=== PATIENT | male | born 1985 | race Caucasian/White ===

== ENCOUNTER 2020-04-14 11:50 | Emergency (ER) | payer SELFPAY ==
[2020-04-14] MEDS ORDERED: NA CHLORIDE 0.9% 1,000 ML ONE (13:48)
[2020-04-14] MEDS ORDERED: ONDANSETRON 4 MG/2 ML VIAL ONE (13:48)
[2020-04-14] MEDS ORDERED: MEPERIDINE HCL 50 MG/ML ONE (13:48)
[2020-04-14 13:51] LABS: Basophils % 0.2 % (0-1.3); Hematocrit 47.7 % (39.6-49.0); Lymphocytes % 7.4 % (15.3-44.8); RBC Red Blood Cell Count 5.61 M/uL (4.33-5.43)
[2020-04-14 14:10] LABS: ALT/SGPT 33 U/L (12-78); AST/SGOT 20 U/L (15-37); Albumin 4.3 g/dL (3.4-5.0); Alkaline Phosphatase 89 U/L (45-117); BUN Blood Urea Nitrogen 9 mg/dL (7-18); Bicarbonate 30 mmol/L (21-32); Bilirubin Direct < 0.1 mg/dL (0-0.2); Bilirubin Total 0.4 mg/dL (0.2-1.0); Glucose Level 123 mg/dL (74-106); Lipase 104 U/L (73-393); Potassium 4.5 mmol/L (3.5-5.1); Protein, Total 8.4 g/dL (6.4-8.2); Sodium Level 141 mmol/L (136-145)
--- NOTE | 2020-04-14 14:28 | RAD REPORT ---
EXAM DESCRIPTION: CT - Abdomen Pelvis W Contrast - 04/14/2020 1:54 pm CLINICAL HISTORY: ABD PAIN COMPARISON: No comparisons TECHNIQUE: Biphasic, helical CT imaging of the abdomen and pelvis was performed following 100 ml non -ionic IV contrast. No oral contrast administered. All CT scans are performed using dose optimization technique as appropriate and may include automated exposure control or mA/KV adjustment according to patient size. FINDINGS: No suspicious findings in the lung bases. The liver, spleen, and pancreas show no suspicious findings. Gallbladder and biliary tree are also wi thout suspicious finding. Mild right-sided hydronephrosis is present secondary to a 6 mm obstructing calculus in the distal rig ht ureter at the pelvic inlet. When viewed from a KUB projection the obstructing stone is superimpose d on the inferior margin of the right sacral ala. A 3 millimeter calcification is present in the mid calyx right kidney. A 3 millimeter lower pole calyx calcification noted on the left. No left-sided hy dronephrosis. Renal function is delayed on the right. No pyelonephritis or acute parenchymal process. No bladder abnormalities. No adrenal abnormalities. No prostate gland abnormality. No dilated bowel loops or bowel wall thickening. Retrocecal appendix is normal. No active GI process seen. No free air, free fluid or inflammatory stranding. No mass or bulky lymphadenopathy. A very sm all fat only umbilical hernia is present. Fat filled left inguinal hernia is present. Left testicle i s in the left inguinal canal. This is probably due to patency of the inguinal canal rather than an un descended testicle. No suspicious bony findings. IMPRESSION: Mild right-sided hydronephrosis secondary to a 6 mm obstructing calculus at the pelvic i nlet level. When viewed from a KUB projection the obstructing calculus is superimposed on the inferior margin of the right sacral ala. As detailed above, no additional acute finding seen. The left testicle is in the left inguinal canal probably due to the hernia and patency the canal rather than a undescended testicle.
[2020-04-14] MEDS ORDERED: MAGNESIUM SULFATE 1 gm IVPB 1 GM/100 ML BAG IV ONE (15:43)
[2020-04-14] MEDS ORDERED: TAMSULOSIN 0.4 MG SR CAP ONE (15:43)
[2020-04-14] MEDS ORDERED: KETOROLAC 30 MG/ML INJ ONE (15:43)
--- NOTE | 2020-04-14 16:15 | EDPHYS ---
Physician Documentation [facility] Name: Lenny Ghotra Jr Age: 35 yrs Sex: Male : 1985 Arrival Date: 04/14/2020 Time: 11:52 Bed 7 Private MD: ED Physician Fredi Rouse HPI: 04/14 15:16 This 35 yrs old Male presents to ER via Ambulatory with complaints of rn Abdominal Pain. 15:16 The patient presents with abdominal pain right lower quadrant. Onset: The rn symptoms/episode began/occurred this morning. The symptoms do not radiate. Modifying factors: The symptoms are alleviated by nothing, the symptoms are aggravated by nothing. Severity of pain: At its worst the pain was moderate in the emergency department the pain has improved. The patient has not experienced similar symptoms in the past. The patient has not recently seen a physician. Historical: - Allergies: 12:11 No Known Allergies; ca1 - Home Meds: 12:11 Adderall XR Oral [Active]; ca1 - PMHx: 12:11 ADD/ADHD; ca1 - PSHx: 12:11 Knee surgery; ca1 - Immunization history:: Adult Immunizations up to date. - Social history:: Smoking status: Patient/guardian denies using tobacco, the patient reports quitting approximately 2 years ago. - Family history:: not pertinent. - Hospitalizations: : No recent hospitalization is reported. ROS: 15:16 Constitutional: Negative for fever, chills, and weight loss, Eyes: Negative for injury, rn pain, redness, and discharge, Cardiovascular: Negative for chest pain, palpitations, and edema, Respiratory: Negative for shortness of breath, cough, wheezing, and pleuritic chest pain, Abdomen/GI: + abd pain and nausea Back: Negative for injury and pain, : Negative for injury, bleeding, discharge, and swelling, MS/Extremity: Negative for injury and deformity, Skin: Negative for injury, rash, and discoloration, Neuro: Negative for headache, weakness, numbness, tingling, and seizure. Exam: 15:16 Constitutional: This is a well developed, well nourished patient who is awake, alert, rn and in no acute distress. Head/Face: Normocephalic, atraumatic. Cardiovascular: Regular rate and rhythm. No pulse deficits. Respiratory: No increased work of breathing, no retractions or nasal flaring. Abdomen/GI: soft, mild RLQ tenderness Skin: Warm, dry MS/ Extremity: Pulses equal, no cyanosis. Neuro: Awake and alert, GCS 15 Vital Signs: 12:08 BP 148 / 99; Pulse 51; Resp 16 S; Temp 97.8(TE); Pulse Ox 100% on R/A; Weight 117.93 kg ca1 (R); Height 6 ft. 2 in. (187.96 cm) (R); Pain 8/10; 15:00 BP 139 / 95; Pulse 65; Resp 18 S; Pulse Ox 99% on R/A; aa5 16:40 BP 138 / 90; Pulse 62; Resp 16 S; Temp 98.0(TE); Pulse Ox 99% on R/A; aa5 12:08 Body Mass Index 33.38 (117.93 kg, 187.96 cm) ca1 MDM: 13:08 Patient medically screened. rn 15:18 Differential diagnosis: appendicitis, Ureterolithiasis. Data reviewed: vital signs, rn nurses notes, lab test result(s), radiologic studies, CT scan. 16:13 Counseling: I had a detailed discussion with the patient and/or guardian regarding: the rn historical points, exam findings, and any diagnostic results supporting the discharge/admit diagnosis, lab results, radiology results, the need for outpatient follow up, to return to the emergency department if symptoms worsen or persist or if there are any questions or concerns that arise at home. Response to treatment: the patient's symptoms have markedly improved after treatment, and as a result, I will discharge patient. Special discussion: Based on the patient's Hx, exam, and Dx evaluation, there is no indication for emergent surgery or inpatient Tx. It is understood by the patient/guardian that if the Sx's persist or worsen they need to return immediately for re-evaluation. I discussed with the patient/guardian in detail that at this point there is no indication for admission to the hospital. It is understood, however, that if the symptoms persist or worsen the patient needs to return immediately for re-evaluation. ED course: Pain resolved, observed here, stone likely passed into bladder, will dc home with symptomatic treatment. . 04/14 13:16 Order name: Basic Metabolic Panel; Complete Time: 14:26 rn 04/14 13:16 Order name: CBC with Diff rn 04/14 13:16 Order name: Hepatic Function; Complete Time: 14:26 rn 04/14 13:16 Order name: Lipase; Complete Time: 14:26 rn 04/14 16:11 Order name: CREATININE WHOLE BLOOD EDMS 04/14 13:16 Order name: CT Abd/Pelvis - IV Contrast Only; Complete Time: 14:58 rn 04/14 16:27 Order name: Urine Dipstick--Ancillary (enter results) bd 04/14 13:16 Order name: IV Saline Lock; Complete Time: 13:42 rn 04/14 13:16 Order name: Labs collected and sent; Complete Time: 13:42 rn 04/14 13:16 Order name: Urine Dipstick-Ancillary (obtain specimen); Complete Time: 17:14 rn Administered Medications: 14:25 Drug: NS 0.9% 1000 ml Route: IV; Rate: 1000 ml; Site: right antecubital; aa5 15:40 Follow up: IV Status: Completed infusion; IV Intake: 1000ml aa5 14:25 Drug: Demerol 50 mg Route: IVP; Site: right antecubital; aa5 14:45 Follow up: Response: No adverse reaction aa5 14:25 Drug: Zofran (Ondansetron) 4 mg Route: IVP; Site: right antecubital; aa5 14:45 Follow up: Response: No adverse reaction aa5 15:40 Drug: Flomax 0.4 mg Route: PO; aa5 16:40 Follow up: Response: No adverse reaction aa5 15:40 Drug: Magnesium Sulfate 1 grams Route: IVPB; Infused Over: 1 hrs; Site: right aa5 antecubital; 16:40 Follow up: IV Status: Completed infusion aa5 15:40 Drug: TORadol 30 mg Route: IVP; Site: right antecubital; aa5 15:50 Follow up: Response: No adverse reaction aa5 Disposition: 04/14/20 16:14 Discharged to Home. Impression: Calculus of lower urinary tract, unspecified. - Condition is Stable. - Discharge Instructions: Kidney Stones, Dietary Guidelines to Help Prevent Kidney Stones. - Prescriptions for Zofran ODT 4 mg Oral tablet,disintegrating - place 1 tablet by TRANSLINGUAL route every 8 hours As needed; 20 tablet. Tylenol- Codeine #3 300-30 mg Oral Tablet - take 1 tablet by ORAL route every 6 hours As needed; 15 tablet. Ibuprofen 800 mg Oral Tablet - take 1 tablet by ORAL route every 12 hours As needed take with food; 20 tablet. - Medication Reconciliation Form, Thank You Letter, Antibiotic Education, Prescription Opioid Use form. - Follow up: Private Physician; When: As needed; Reason: Recheck today's complaints, Re-evaluation by your physician. - Problem is new. - Symptoms have improved. Signatures: Dispatcher [employer] EDVT Fredi Rouse MD MD rn Calderon, Audri RN RN aa5 Carol Mcneil RN RN ca1 Corrections: (The following items were deleted from the chart) 17:14 16:14 04/14/2020 16:14 Discharged to Home. Impression: Calculus of lower urinary tract, aa5 unspecified. Condition is Stable. Forms are Medication Reconciliation Form, Thank You Letter, Antibiotic Education, Prescription Opioid Use. Follow up: Private Physician; When: As needed; Reason: Recheck today's complaints, Re-evaluation by your physician. Problem is new. Symptoms have improved. rn
--- NOTE | 2020-04-14 16:15 | ER ---
Nurse's Notes [facility] Name: Lenny Ghotra Jr Age: 35 yrs Sex: Male : 1985 Arrival Date: 04/14/2020 Time: 11:52 Bed 7 Private MD: Diagnosis: Calculus of lower urinary tract, unspecified Presentation: 04/14 12:08 Chief complaint: Patient states: Mid abdominal pain at 0830 today. Reports N/V. Denies ca1 diarrhea. Hx of Ulcerative Colitis. Coronavirus screen: Client denies travel out of the [place] in the last 14 days. At this time, the client does not indicate any symptoms associated with coronavirus-19. Ebola Screen: Patient negative for fever greater than or equal to 101.5 degrees Fahrenheit, and additional compatible Ebola Virus Disease symptoms Patient denies exposure to infectious person. Patient denies travel to an Ebola-affected area in the 21 days before illness onset. No symptoms or risks identified at this time. Initial Sepsis Screen: Does the patient meet any 2 criteria? No. Patient's initial sepsis screen is negative. Does the patient have a suspected source of infection? No. Patient's initial sepsis screen is negative. Risk Assessment: Do you want to hurt yourself or someone else? Patient reports no desire to harm self or others. Onset of symptoms was April 14, 2020 at 08:30. 12:08 Method Of Arrival: Ambulatory ca1 12:08 Acuity: NIKKY 3 ca1 Historical: - Allergies: 12:11 No Known Allergies; ca1 - Home Meds: 12:11 Adderall XR Oral [Active]; ca1 - PMHx: 12:11 ADD/ADHD; ca1 - PSHx: 12:11 Knee surgery; ca1 - Immunization history:: Adult Immunizations up to date. - Social history:: Smoking status: Patient/guardian denies using tobacco, the patient reports quitting approximately 2 years ago. - Family history:: not pertinent. - Hospitalizations: : No recent hospitalization is reported. Screenin:15 Abuse screen: Denies threats or abuse. Nutritional screening: No deficits noted. aa5 Tuberculosis screening: No symptoms or risk factors identified. Fall Risk None identified. Assessment: 13:15 General: Appears comfortable, Behavior is calm, cooperative. Pain: Complains of pain in aa5 right lower quadrant and left lower quadrant Pain does not radiate. Pain currently is 8 out of 10 on a pain scale. Quality of pain is described as aching, Is continuous. Neuro: Level of Consciousness is awake, alert, obeys commands, Oriented to person, place, time, situation. Cardiovascular: Patient's skin is warm and dry. Respiratory: Airway is patent Respiratory effort is even, unlabored, Respiratory pattern is regular, symmetrical. GI: Abdomen is round non-distended, Bowel sounds present X 4 quads. Abdomen is tender to palpation in right lower quadrant Reports nausea. : Denies inability to void. EENT: No signs and/or symptoms were reported regarding the EENT system. Derm: Skin is pink, warm \T\ dry. Musculoskeletal: Range of motion: intact in all extremities. 13:40 Reassessment: To bedside to administer meds, pt currently at radiology. . aa5 15:40 Reassessment: Patient is alert, oriented x 3, equal unlabored respirations, skin aa5 warm/dry/pink. 16:40 Reassessment: Patient is alert, oriented x 3, equal unlabored respirations, skin aa5 warm/dry/pink. Patient denies pain at this time. Patient states feeling better. 17:00 Reassessment: Urine Micro cancelled per Dr. Rouse, lab notified to cancel order. . aa5 17:10 Reassessment: Patient is alert, oriented x 3, equal unlabored respirations, skin aa5 warm/dry/pink. Patient denies pain at this time. Patient states feeling better. Vital Signs: 12:08 BP 148 / 99; Pulse 51; Resp 16 S; Temp 97.8(TE); Pulse Ox 100% on R/A; Weight 117.93 kg ca1 (R); Height 6 ft. 2 in. (187.96 cm) (R); Pain 8/10; 15:00 BP 139 / 95; Pulse 65; Resp 18 S; Pulse Ox 99% on R/A; aa5 16:40 BP 138 / 90; Pulse 62; Resp 16 S; Temp 98.0(TE); Pulse Ox 99% on R/A; aa5 12:08 Body Mass Index 33.38 (117.93 kg, 187.96 cm) ca1 ED Course: 11:52 Patient arrived in ED. ag5 12:10 Triage completed. ca1 12:11 Arm band placed on right wrist. ca1 13:04 Katarina Patterson, RN is Primary Nurse. aa5 13:07 Fredi Rouse MD is Attending Physician. rn 13:15 Patient has correct armband on for positive identification. Placed in gown. Bed in low aa5 position. Call light in reach. Side rails up X2. Pulse ox on. NIBP on. 13:38 Inserted saline lock: 20 gauge in right antecubital area, using aseptic technique. rb1 ,using aseptic technique. Inserted by the student and the instructor. Blood collected. 13:53 CT Abd/Pelvis - IV Contrast Only In Process Unspecified. EDMS 17:10 No provider procedures requiring assistance completed. IV discontinued, intact, aa5 bleeding controlled, No redness/swelling at site. Pressure dressing applied. Administered Medications: 14:25 Drug: NS 0.9% 1000 ml Route: IV; Rate: 1000 ml; Site: right antecubital; aa5 15:40 Follow up: IV Status: Completed infusion; IV Intake: 1000ml aa5 14:25 Drug: Demerol 50 mg Route: IVP; Site: right antecubital; aa5 14:45 Follow up: Response: No adverse reaction aa5 14:25 Drug: Zofran (Ondansetron) 4 mg Route: IVP; Site: right antecubital; aa5 14:45 Follow up: Response: No adverse reaction aa5 15:40 Drug: Flomax 0.4 mg Route: PO; aa5 16:40 Follow up: Response: No adverse reaction aa5 15:40 Drug: Magnesium Sulfate 1 grams Route: IVPB; Infused Over: 1 hrs; Site: right aa5 antecubital; 16:40 Follow up: IV Status: Completed infusion aa5 15:40 Drug: TORadol 30 mg Route: IVP; Site: right antecubital; aa5 15:50 Follow up: Response: No adverse reaction aa5 Intake: 15:40 IV: 1000ml; Total: 1000ml. aa5 Outcome: 16:14 Discharge ordered by . rn 17:10 Discharged to home ambulatory. aa5 17:10 Condition: improved 17:10 Discharge instructions given to patient, Instructed on discharge instructions, follow up and referral plans. medication usage, Demonstrated understanding of instructions, follow-up care, medications, Prescriptions given X 3. 17:14 Patient left the ED. aa5 Signatures: Dispatcher [employer] EDMS Fredi Rouse MD MD rn Calderon, Audri, RN RN aa5 Meenakshi Arias RN RN rb1 Carol Mcneil RN RN ca1 Dom, Manju ag5 Corrections: (The following items were deleted from the chart) 12:11 12:08 BP 148 / 99; Pulse 47bpm; Resp 16bpm; Spontaneous; Pulse Ox 100% RA; Temp 97.8F ca1 Temporal; 117.93 kg Reported; Height 6 ft. 2 in. Reported; BMI: 33.3; Pain 8/10; ca1 18:07 16:20 BP 138 / 90; Pulse 62bpm; Resp 16bpm; Spontaneous; Pulse Ox 99% RA; Temp 98.0F aa5 Temporal; aa5
[2020-04-14 16:41] LABS: Urine Blood 2+ (NEG); Urine Glucose NEGATIVE (NEG); Urine Protein NEGATIVE (NEG); Urine Specific Gravity 1.015 (1.005-1.030)
[2020-04-14 17:38] VITALS: TEMP 97.8
[2020-04-14 17:40] VITALS: BP 139/95; O2SAT 99
[2020-04-14 18:50] LABS: Blood Morphology Comment NOT SEEN (NOT SEEN); Platelet Estimate ADEQ; White Blood Cell Scan OK (OK)
== END 2020-04-14 17:14 | disposition home or self-care (01) ==
LOC: ER 11:50
DX: N21.9 Calculus of lower urinary tract, unspecified (principal); F90.9 Attention-deficit hyperactivity disorder, unspecified type
CPT/HCPCS: 36415; 74177; 80048; 80076; 81003; 82565; 83690; 85025; 96361; 96365; 96375; 99284; J2175; J2405; J3475; J7030; Q9967